=== PATIENT | female | born 1985 | race African-American/Black ===

== ENCOUNTER 2018-07-15 19:02 | Emergency (ER) | payer SELFPAY ==
[~2018-07-15] VITALS: Ht 170.2 cm; Wt 96.2 kg
--- NOTE | 2018-07-15 19:41 | PHYS DOC ---
Past History Past Medical History: Asthma Past Surgical History: No Surgical History Alcohol Use: Rarely Drug Use: None Adult General Chief Complaint Chief Complaint: SORE THROAT HPI HPI 2-year-old female presents with 2 day history of sore throat. Patient stated his become increasingly more painful to swallow. She states it feels like strep throat which she has had in the past. Her last episode was last winter. Patient denies fever or chills. She has had a mild intermittent cough. She denies any other complaints. Review of Systems Review of Systems Constitutional: Denies fever or chills [] Eyes: Denies change in visual acuity, redness, or eye pain [] HENT: Sore throat [] Respiratory: Denies cough or shortness of breath [] Cardiovascular: No additional information not addressed in HPI [] GI: Denies abdominal pain, nausea, vomiting, bloody stools or diarrhea [] : Denies dysuria or hematuria [] Musculoskeletal: Denies back pain or joint pain [] Integument: Denies rash or skin lesions [] Neurologic: Denies headache, focal weakness or sensory changes [] Endocrine: Denies polyuria or polydipsia [] All other systems were reviewed and found to be within normal limits, except as documented in this note. Allergies Allergies Allergies Coded Allergies Type Severity Reaction Last Updated Verified No Known Drug Allergies 07/15/18 No Physical Exam Physical Exam Constitutional: Well developed, well nourished, no acute distress, non-toxic appearance. [] HENT: Normocephalic, atraumatic, bilateral external ears normal, oropharynx erythematous with exudates on bilateral tonsils, nose normal. [] Eyes: PERRLA, EOMI, conjunctiva normal, no discharge. [] Neck: Normal range of motion, no tenderness, supple, no stridor. [] Cardiovascular:Heart rate regular rhythm, no murmur [] Lungs & Thorax: Bilateral breath sounds clear to auscultation [] Abdomen: Bowel sounds normal, soft, no tenderness, no masses, no pulsatile masses. [] Skin: Warm, dry, no erythema, no rash. [] Back: No tenderness, no CVA tenderness. [] Extremities: No tenderness, no cyanosis, no clubbing, ROM intact, no edema. [] Neurologic: Alert and oriented X 3, normal motor function, normal sensory function, no focal deficits noted. [] Psychologic: Affect normal, judgement normal, mood normal. [] Current Patient Data Vital Signs Vital Signs Date Time Temp Pulse Resp B/P (MAP) Pulse Ox O2 Delivery O2 Flow Rate FiO2 07/15/18 19:02 98.1 81 20 99 Room Air EKG EKG [] Radiology/Procedures Radiology/Procedures [] Course & Med Decision Making Course & Med Decision Making Pertinent Labs and Imaging studies reviewed. (See chart for details) Patient's rapid strep is positive. She would prefer to be treated with an injection versus pills. [] Dragon Disclaimer Dragon Disclaimer This electronic medical record was generated, in whole or in part, using a voice recognition dictation system. Departure Departure: Impression: Primary Impression: Strep pharyngitis Disposition: 01 HOME, SELF-CARE Condition: STABLE Patient Instructions: Strep Throat, [id number] SJ PEREA DO Jul 15, 2018 19:41
[2018-07-15 19:45] VITALS: BP 114/61
[2018-07-15] MEDS: PENICILLIN G BENZATHINE LA 1,200,000 UNIT/2 ML DISP.SYRIN. IM ONE (19:57)
== END 2018-07-15 20:00 | disposition home or self-care (01) ==
LOC: ER 19:02
DX: J02.0 Streptococcal pharyngitis (principal); B95.0 Streptococcus, group A, as the cause of diseases classified elsewhere; J45.909 Unspecified asthma, uncomplicated
CPT/HCPCS: 87880; 96372; 99283; J0561

== ENCOUNTER 2019-04-07 20:58 | Emergency (ER) | payer SELFPAY ==
[~2019-04-07] VITALS: Ht 170.2 cm; Wt 96.2 kg
[2019-04-07] MEDS ORDERED: IV NORMAL SALINE 1,000ML 1,000 ML IV ONE (21:30)
[2019-04-07] MEDS ORDERED: ONDANSETRON PF 4 MG/2 ML VIAL. IVP ONE ×2 (21:30→23:00)
--- NOTE | 2019-04-07 21:37 | PHYS DOC ---
Past History Past Medical History: Asthma Past Surgical History: No Surgical History Alcohol Use: Rarely Drug Use: None Adult General Chief Complaint Chief Complaint: NAUSEA/VOMITING/DIARRHEA HPI HPI 33-year-old female presents with nausea and vomiting. She has had multiple episodes today starting around 3 PM. The patient had one can of beer around 1 PM and she felt fine at that time. She started have some generalized abdominal cramping followed by vomiting. She is not on any prescription medications. She has not had a reaction like this to alcohol in the past. She has no known sick contact. She denies diarrhea. Denies fever. Her pain as a diffuse cramping that is 3 out of 10. Review of Systems Review of Systems Constitutional: Denies fever or chills [] Eyes: Denies change in visual acuity, redness, or eye pain [] HENT: Denies nasal congestion or sore throat [] Respiratory: Denies cough or shortness of breath [] Cardiovascular: No additional information not addressed in HPI [] GI: Diffuse abdominal pain, nausea, vomiting. Denies bloody stools or diarrhea [] : Denies dysuria or hematuria [] Musculoskeletal: Denies back pain or joint pain [] Integument: Denies rash or skin lesions [] Neurologic: Denies headache, focal weakness or sensory changes [] Endocrine: Denies polyuria or polydipsia [] All other systems were reviewed and found to be within normal limits, except as documented in this note. Current Medications Current Medications Current Medications Medications (Trade) Dose Ordered Sig/[place] Start Time Stop Time Status Last Admin Dose Admin Ondansetron HCl (Zofran) 4 mg 1X ONCE 04/07/19 21:30 04/07/19 21:31 DC 04/07/19 21:32 4 MG Sodium Chloride 1,000 ml @ 1,000 mls/hr 1X ONCE 04/07/19 21:30 04/07/19 22:29 04/07/19 21:32 1,000 MLS/HR Allergies Allergies Allergies Coded Allergies Type Severity Reaction Last Updated Verified No Known Drug Allergies 07/15/18 No Physical Exam Physical Exam Constitutional: Well developed, well nourished, mild acute distress, vomiting, non-toxic appearance. [] HENT: Normocephalic, atraumatic, bilateral external ears normal, oropharynx moist, no oral exudates, nose normal. [] Eyes: PERRLA, EOMI, conjunctiva normal, no discharge. [] Neck: Normal range of motion, no tenderness, supple, no stridor. [] Cardiovascular:Heart rate regular rhythm, no murmur [] Lungs & Thorax: Bilateral breath sounds clear to auscultation [] Abdomen: Bowel sounds normal, soft, diffuse tenderness, no masses, no pulsatile masses. [] Skin: Warm, dry, no erythema, no rash. [] Back: No tenderness, no CVA tenderness. [] Extremities: No tenderness, no cyanosis, no clubbing, ROM intact, no edema. [] Neurologic: Alert and oriented X 3, normal motor function, normal sensory function, no focal deficits noted. [] Psychologic: Affect normal, judgement normal, mood normal. [] Current Patient Data Lab Results Laboratory Tests Test 04/07/19 21:19 POC Urine HCG, Qualitative hcg negative (Negative) EKG EKG [] Radiology/Procedures Radiology/Procedures [] Course & Med Decision Making Course & Med Decision Making Pertinent Labs and Imaging studies reviewed. (See chart for details) The patient is actively vomiting in the emergency room. I ordered labs and urinalysis. Her urine test is negative. We will give her 4 mg of Zofran IV and a liter of normal saline. Labs are pending. The patient's labs are unremarkable. She's had no further vomiting. I will discharge her with prescription for Zofran. This is likely a viral illness. She is stable for discharge at this time. [] Dragon Disclaimer Dragon Disclaimer This electronic medical record was generated, in whole or in part, using a voice recognition dictation system. Departure Departure: Impression: Primary Impression: Viral gastritis Disposition: 01 HOME, SELF-CARE Condition: STABLE Referrals: PCP,NO (PCP) Patient Instructions: Nausea and Vomiting, [id number] Scripts Ondansetron (ONDANSETRON ODT) 4 Mg Tab.rapdis 1 TAB PO PRN Q6-8HRS PRN for VOMITING, #16 TAB Prov: SJ PEREA DO 04/07/19 SJ PEREA DO Apr 07, 2019 21:37
[2019-04-07 21:40] LABS: BASO % 1 % (0-3); EOS # 0.2 x10^3/uL (0.0-0.7); EOS % 3 % (0-3); HEMOGLOBIN 13.9 g/dL (12.0-15.5); LYMPH # 1.8 x10^3/uL (1.0-4.8); LYMPH % 25 % (24-48); MEAN CORPUSCULAR HEMOGLOBIN 31 pg (25-35); MEAN CORPUSCULAR HGB CONC 33 g/dL (31-37); MEAN CORPUSCULAR VOLUME 95 fL (79-100); MONO # 0.6 x10^3/uL (0.0-1.1); MONO % 8 % (0-9); NEUT # 4.5 x10^3uL (1.8-7.7); NEUT % 64 % (31-73); PLATELET COUNT 317 x10^3/uL (140-400); RED BLOOD COUNT 4.43 x10^6/uL (3.50-5.40); RED CELL DISTRIBUTION WIDTH 13.5 % (11.5-14.5); WHITE BLOOD COUNT 7.1 x10^3/uL (4.0-11.0)
[2019-04-07 21:46] LABS: BILIRUBIN,URINE NEG (NEG); CLARITY,URINE CLEAR; COLOR,URINE YELLOW; GLUCOSE,URINE NEG (NEG)
[2019-04-07 21:47] LABS: BACTERIA,URINE FEW /HPF (0-FEW); NITRITE,URINE NEG (NEG); RBC,URINE OCC /HPF (0-2); UROBILINOGEN,URINE 0.2 mg/dL (0.2 mg/dL); WBC,URINE RARE /HPF (0-4)
[2019-04-07 21:48] LABS: SQUAMOUS EPITHELIAL CELL,UR FEW /LPF
[2019-04-07 21:49] LABS: ALBUMIN 3.7 g/dL (3.4-5.0); ALBUMIN/GLOBULIN RATIO 0.8 (1.0-1.7); CALCIUM 8.7 mg/dL (8.5-10.1); CREATININE 0.9 mg/dL (0.6-1.0); GFR 87.8; TOTAL BILIRUBIN 0.4 mg/dL (0.2-1.0); TOTAL PROTEIN 8.1 g/dL (6.4-8.2)
[2019-04-07] MEDS ORDERED: ONDA4TAB12 PO (22:33)
[2019-04-07] MEDS ORDERED: ONDANSETRON 4MG ODT 4TABLET STARTPACK. PO ONE (22:45)
[2019-04-07 22:57] VITALS: BP 94/48
[2019-04-07] MEDS ORDERED: clonazePAM 1 MG TABLET PO PRN (23:30)
== END 2019-04-07 23:07 | disposition home or self-care (01) ==
LOC: ER 20:58
DX: A08.4 Viral intestinal infection, unspecified (principal); R11.2 Nausea with vomiting, unspecified; J45.909 Unspecified asthma, uncomplicated
CPT/HCPCS: 36415; 80053; 81001; 81025; 85025; 96361; 96374; 96376; 99284; J2405; Q0162; J7030

== ENCOUNTER 2019-06-17 21:27 | Emergency (ER) | payer SELFPAY ==
[~2019-06-17] VITALS: Ht 170.2 cm; Wt 97.1 kg
[~2019-06-17 21:27] MED LIST: ONDA4TAB12 PO
[2019-06-17] MEDS ORDERED: ACETAMINOPHEN 500 MG TABLET PO ONE (21:45)
[2019-06-17] MEDS ORDERED: ONDANSETRON ODT 4 MG TAB.RAPDIS PO ONE (21:45)
[2019-06-17 22:30] VITALS: BP 101/75
[2019-06-17 23:41] LABS: BARBITURATES NEG (NEG); BENZODIAZEPINES NEG (NEG); CANNABINOIDS POS (NEG); COCAINE POS (NEG); METHADONE NEG (NEG); OPIATES NEG (NEG); PHENCYCLIDINE NEG (NEG)
--- NOTE | 2019-06-17 23:41 | PHYS DOC ---
Past History Past Medical History: Asthma Past Surgical History: No Surgical History Alcohol Use: Rarely Drug Use: None Adult General Chief Complaint Chief Complaint: GENERALIZED BODY ACHES..." I hurt everywhere... my skin even hurts... I ve got fever and chills.. it been going on the last several days... HPI HPI Patient is a 33 year old female who presents with nausea, malaise, arthralgia, myalgia, fever, and chills. Patient did not get a flu vaccination this season. No recent travel. No history immunosuppression. No specific ill contacts. Review of Systems Review of Systems Constitutional: Complaints of fever or chills [] Eyes: Denies change in visual acuity, redness, or eye pain [] HENT: Denies nasal congestion or sore throat [] Respiratory: Denies cough or shortness of breath [] Cardiovascular: No additional information not addressed in HPI [] GI: Denies abdominal pain, nausea, vomiting, bloody stools or diarrhea [] : Denies dysuria or hematuria [] Musculoskeletal: Complaints of generalize arthralgia and myalgia. Integument: Denies rash or skin lesions [] Neurologic: Denies headache, focal weakness or sensory changes [] Endocrine: Denies polyuria or polydipsia [] All other systems were reviewed and found to be within normal limits, except as documented in this note. Family History Family History Noncontributory Current Medications Current Medications Current Medications Medications (Trade) Dose Ordered Sig/[place] Start Time Stop Time Status Last Admin Dose Admin Acetaminophen (Tylenol) 1,000 mg 1X ONCE 06/17/19 21:45 06/17/19 21:46 DC Ondansetron HCl (Zofran Odt) 8 mg 1X ONCE 06/17/19 21:45 06/17/19 21:46 DC Allergies Allergies Allergies Coded Allergies Type Severity Reaction Last Updated Verified No Known Drug Allergies 07/15/18 No Physical Exam Physical Exam Constitutional: Moderate acute distress, non-toxic appearance. [] HENT: Normocephalic, atraumatic, bilateral external ears normal, oropharynx moist, was nasal drainage and mild erythema, no oral exudates, nose: Turbinates and clear rhinorrhea Eyes: PERRLA, EOMI, conjunctiva normal, no discharge. [] Neck: Normal range of motion, no tenderness, supple, no stridor. [] Cardiovascular: Tachycardia Heart rate regular rhythm, no murmur [] Lungs & Thorax: Bilateral breath sounds equal at apexes and a few scattered wheezes on auscultation [] Abdomen: Bowel sounds normal, soft, no tenderness, no masses, no pulsatile masses. []Obese. Skin: Warm, dry, no erythema, no rash. [] Back: No tenderness, no CVA tenderness. [] Extremities: No tenderness, no cyanosis, no clubbing, ROM intact, no edema. [] Neurologic: Alert and oriented X 3, normal motor function, normal sensory function, no focal deficits noted. [] Psychologic: Affect anxious, judgement normal, mood normal. [] Current Patient Data Lab Results Laboratory Tests Test 06/17/19 23:05 06/17/19 23:12 Group A Streptococcus Rapid Negative (NEGATIVE) POC Urine HCG, Qualitative hcg negative (Negative) EKG EKG [] Radiology/Procedures Radiology/Procedures [] Course & Med Decision Making Course & Med Decision Making Pertinent Labs and Imaging studies reviewed. (See chart for details) She take Tylenol and ibuprofen as needed for pain and discomfort and fever. Patient push fluids. Patient follow-up primary care. When over this acute illness get update vaccination for influenza. Follow-up primary care. Return if any concerns. Avoid illicit drugs and smoking. Impression: 1. Viral Syndrome-influenza B 2. Polysubstance Abuse ( Drug screen + Cocaine, Marijuana) [] Dragon Disclaimer Dragon Disclaimer This electronic medical record was generated, in whole or in part, using a voice recognition dictation system. Departure Departure: Disposition: 01 HOME/RESIDENCE PRIOR TO ADM Condition: STABLE Referrals: PCP,NO (PCP) Scripts Ondansetron Hcl (ZOFRAN) 8 Mg Tablet 8 MG PO QIDPRN PRN for NAUSEA/VOMITING, #30 TAB Prov: AYAKA HICKS MD 06/17/19 [place] Disclaimer This chart was dictated in whole or in part using Voice Recognition software in a busy, high-work load, and often noisy Emergency Department environment. It may contain unintended and wholly unrecognized errors or omissions. AYAKA HICKS MD Jun 17, 2019 23:41
[2019-06-17 23:42] LABS: AMPHETAMINE/METHAMPHETAMINE NEG (NEG)
[2019-06-17 23:45] LABS: BACTERIA,URINE 0 /HPF (0-FEW); BILIRUBIN,URINE NEG (NEG); CLARITY,URINE HAZY; COLOR,URINE AMBER; GLUCOSE,URINE NEG (NEG); NITRITE,URINE NEG (NEG); SQUAMOUS EPITHELIAL CELL,UR OCC /LPF; UROBILINOGEN,URINE 0.2 mg/dL (0.2 mg/dL)
[2019-06-17] MEDS ORDERED: ONDA8TAB9 PO (23:51)
[2019-06-17 23:56] LABS: INFLUENZA A PATIENT NEGATIVE (NEGATIVE); INFLUENZA B PATIENT POSITIVE (NEGATIVE)
--- NOTE | 2019-06-18 00:51 | RAD ---
Exam: Chest 2 views INDICATION: Cough TECHNIQUE: Frontal and lateral views the chest Comparisons: None FINDINGS: The cardiomediastinal silhouette and pulmonary vessels are within normal limits. The lung and pleural spaces are clear. IMPRESSION: No acute cardiopulmonary process. Electronically signed by: Roz Maldonado MD (06/18/2019 12:48 AM) [id number]
== END 2019-06-18 01:00 | disposition home or self-care (01) ==
LOC: ER 21:27
DX: J10.1 Influenza due to other identified influenza virus with other respiratory manifestations (principal); J45.909 Unspecified asthma, uncomplicated; F14.10 Cocaine abuse, uncomplicated; F12.10 Cannabis abuse, uncomplicated
CPT/HCPCS: 36415; 71046; 80307; 81001; 81025; 87070; 87804; 87880; 99285; Q0162

== ENCOUNTER 2019-07-09 00:18 | Emergency (ER) | payer SELFPAY ==
[~2019-07-09] VITALS: Ht 170.2 cm; Wt 95.3 kg
[~2019-07-09 00:18] MED LIST changes: +ONDA8TAB9 PO
[2019-07-09 00:30] VITALS: BP 116/63
[2019-07-09] MEDS ORDERED: AMOX875T PO (00:33)
[2019-07-09] MEDS ORDERED: DEXAMETHASONE SOD PHOS 10 MG/ML VIAL IV ONE (01:00)
[2019-07-09] MEDS ORDERED: AMOXICILLIN 250 MG CAPSULE PO ONE (01:00)
[2019-07-09] MEDS ORDERED: ACETAMINOPHEN 500 MG TABLET PO ONE (01:00)
[2019-07-09] MEDS ORDERED: DEXAMETHASONE 4 MG TABLET PO ONE (01:00)
--- NOTE | 2019-07-09 05:03 | PHYS DOC ---
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 Past Surgical History: No Surgical History Alcohol Use: Occasionally Drug Use: Marijuana Adult General Chief Complaint Chief Complaint: SORE THROAT HPI HPI Patient is a [sore throat for two days feels warm unk fever not really coughing has strep throat every winter this feels the same pain moderate feels weak all over, same as when she has strep throat Review of Systems Review of Systems Constitutional: Denies fever or chills [] Eyes: Denies change in visual acuity, redness, or eye pain [] HENT: Denies nasal congestion or sore throat [] Respiratory: Denies cough or shortness of breath [] Cardiovascular: No additional information not addressed in HPI [] GI: Denies abdominal pain, nausea, vomiting, bloody stools or diarrhea [] : Denies dysuria or hematuria [] Musculoskeletal: Denies back pain or joint pain [] Integument: Denies rash or skin lesions [] Neurologic: Denies headache, focal weakness or sensory changes [] Endocrine: Denies polyuria or polydipsia [] All other systems were reviewed and found to be within normal limits, except as documented in this note. Current Medications Current Medications Current Medications Medications (Trade) Dose Ordered Sig/[place] Start Time Stop Time Status Last Admin Dose Admin Acetaminophen (Tylenol) 1,000 mg 1X ONCE 07/09/19 01:00 07/09/19 00:52 DC 07/09/19 00:45 1,000 MG Amoxicillin (Amoxil) 750 mg 1X ONCE 07/09/19 01:00 07/09/19 00:51 DC 07/09/19 00:46 750 MG Dexamethasone (Decadron) 6 mg 1X ONCE 07/09/19 01:00 07/09/19 00:52 DC 07/09/19 00:46 6 MG Dexamethasone Sodium Phosphate (Decadron) 6 mg 1X ONCE 07/09/19 01:00 07/09/19 00:41 DC Allergies Allergies Allergies Coded Allergies Type Severity Reaction Last Updated Verified No Known Drug Allergies 07/15/18 No Physical Exam Physical Exam Constitutional: Well developed, well nourished, no acute distress, non-toxic appearance. [] HENT: Normocephalic, atraumatic, b/l tonsillar erythema with exudate, uvula midline airway patent. lad noted ant neck one cm Neck: Normal range of motion, no tenderness, supple, no stridor. [] Cardiovascular:Heart rate regular rhythm, no murmur [] Lungs & Thorax: Bilateral breath sounds clear to auscultation [] Extremities: No tenderness, no cyanosis, no clubbing, ROM intact, no edema. [] Neurologic: Alert and oriented X 3, normal motor function, normal sensory function, no focal deficits noted. [] Psychologic: Affect normal, judgement normal, mood normal. [] Current Patient Data Vital Signs Vital Signs Date Time Temp Pulse Resp B/P (MAP) Pulse Ox O2 Delivery O2 Flow Rate FiO2 07/09/19 00:30 99.0 114 98 07/09/19 00:29 18 116/63 (80) Room Air Lab Results Temperature (Fahrenheit): * 99.0 degrees F (97.6-99.5) Patient Temperature * 99.0 degrees F (97.5-99.5) Temperature Source * Oral Blood Pressure Systolic * 116 mm Hg (100-140) Blood Pressure Diastolic * 63 mm Hg (60-100) Blood Pressure Mean * 80 mm Hg Blood Pressure Location * Right Arm Blood Pressure Source * Automatic Cuff Pulse Rate * 114 beats per minute (60-90) H Pulse Assessment Method * NIBP Bedside Pulse Oximetry * 98 % Treatment Prior to Arrival * No EKG EKG [] Radiology/Procedures Radiology/Procedures [] Course & Med Decision Making Course & Med Decision Making Pertinent Labs and Imaging studies reviewed. (See chart for details) []classic strep throat by hx and exam treat presumptively symptom control provided, decadron in ed. Dragon Disclaimer Dragon Disclaimer This electronic medical record was generated, in whole or in part, using a voice recognition dictation system. Departure Departure: Impression: Primary Impression: Pharyngitis Disposition: 01 HOME, SELF-CARE Condition: STABLE Patient Instructions: Sore Throat, [id number] Scripts Amoxicillin (AMOXICILLIN) 875 Mg Tablet 1 TAB PO BID for pharyngitis, #14 TAB Prov: THOR SARAVIA MD 07/09/19 THOR SARAVIA MD Jul 09, 2019 05:03
== END 2019-07-09 00:50 | disposition home or self-care (01) ==
LOC: ER 00:18
DX: J02.9 Acute pharyngitis, unspecified (principal); J45.909 Unspecified asthma, uncomplicated
CPT/HCPCS: 99284; J8540

== ENCOUNTER 2020-01-26 05:47 | Emergency (ER) | payer OTHER ==
[~2020-01-26] VITALS: Ht 170.2 cm; Wt 94.5 kg
[~2020-01-26 05:47] MED LIST changes: +AMOX875T PO
--- NOTE | 2020-01-26 05:53 | PHYS DOC ---
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 Risk Scores: Score 0 - 3: 2.5% MACE over next 6 weeks - Discharge Home Score 4 - 6: 20.3% MACE over next 6 weeks - Admit for Clinical Observation Score 7 - 10: 72.7% MACE over next 6 weeks - Early Invasive Strategies (AYAKA HICKS MD) Risk Factors: Risk Factors: DM, Current or recent (<one month) smoker, HTN, HLP, family history of CAD, obesity. Risk Scores: Score 0 - 3: 2.5% MACE over next 6 weeks - Discharge Home Score 4 - 6: 20.3% MACE over next 6 weeks - Admit for Clinical Observation Score 7 - 10: 72.7% MACE over next 6 weeks - Early Invasive Strategies (PEE CHOI DO) General Adult EDM: Chief Complaint: CHEST PAIN HPI: HPI: ".. I ve been hurting since last night.. it started here on the Rt.... about 1030.. it hurt to move this Rt. arm..and take a deep breath...I did have a little coughing before..but not my asthma cough.." Patient is a 34 year old female who presents with onset of right chest wall pain starting approximately 2230 hrs. last night. Pain is described as sharp and severe. Pain is exacerbated abated by deep breaths or cough. Pain is reproducible on palpation and movement of right arm. Patient does occasionally smoke tobacco and marijuana. Does occasionally use alcohol. Patient denies any drug use. Patient denies any past cardiac issues. Patient does have a history of asthma. No history of recent hospitalizations and does not feel this is related to her underlying asthma issues. No family history of onset of early cardiac disease. (AYAKA HICKS MD) Review of Systems: Review of Systems: Constitutional: Denies fever or chills Eyes: Denies change in visual acuity HENT: Denies nasal congestion or sore throat Respiratory: Denies cough or shortness of breath Cardiovascular: Complains of right chest wall pain GI: Denies abdominal pain, nausea, vomiting, bloody stools or diarrhea : Denies dysuria Musculoskeletal: Denies back pain or joint pain Integument: Denies rash Neurologic: Denies headache, focal weakness or sensory changes Endocrine: Denies polyuria or polydipsia Lymphatic: Denies swollen glands Psychiatric: Denies depression or anxiety (AYAKA HICKS MD) Heart Score: HEART Score for Chest Pain: HEART Score for Chest Pain Response (Comments) Value History Slighlty/Non-Suspicious 0 ECG Normal 0 Age < 45 0 Risk Factors 1 or 2 Risk Factors 1 Total 1 Risk Factors: Risk Factors: DM, Current or recent (<one month) smoker, HTN, HLP, family history of CAD, obesity. Risk Scores: Score 0 - 3: 2.5% MACE over next 6 weeks - Discharge Home Score 4 - 6: 20.3% MACE over next 6 weeks - Admit for Clinical Observation Score 7 - 10: 72.7% MACE over next 6 weeks - Early Invasive Strategies (AYAKA HICKS MD) HEART Score for Chest Pain: HEART Score for Chest Pain Response (Comments) Value History Slighlty/Non-Suspicious 0 ECG Normal 0 Age < 45 0 Risk Factors 1 or 2 Risk Factors 1 Troponin < Normal Limit 0 Total 1 Family History: Family History: Noncontributory to presentation (AYAKA HICKS MD) Current Medications: Current Meds: See nursing for home meds (AYAKA HICKS MD) Allergies: Allergies: Allergies Coded Allergies Type Severity Reaction Last Updated Verified No Known Drug Allergies 07/15/18 No (AYAKA HICKS MD) Physical Exam: PE: Constitutional: Mild distress, non-toxic appearance. [] HENT: Normocephalic, atraumatic, bilateral external ears normal, oropharynx moist, no oral exudates, nose normal. [] Eyes: PERRLA, EOMI, conjunctiva normal, no discharge. [] Neck: Normal range of motion, no tenderness, supple, no stridor. [] Cardiovascular: Bradycardia heart rate regular rhythm, no murmur [] Lungs & Thorax: Bilateral breath sounds equal at apex with few scattered wheezes on auscultation [] does have pain on palpation of right pectoral area Abdomen: Bowel sounds normal, soft, no tenderness, no masses, no pulsatile masses. Obese Skin: Warm, dry, no erythema, no rash. [] Back: No tenderness, no CVA tenderness. [] Extremities: No tenderness, no cyanosis, no clubbing, ROM intact, no edema. No cording appreciated Neurologic: Alert and oriented X 3, normal motor function, normal sensory function, no focal deficits noted. [] Psychologic: Affect anxious, judgement normal, mood normal. [] (AYAKA HICKS MD) Current Patient Data: Labs: Laboratory Tests Test 01/26/20 06:00 01/26/20 06:10 01/26/20 06:15 Urine Collection Type Unknown Urine Color Yellow Urine Clarity Clear Urine pH 5.5 Urine Specific [place] >=1.030 Urine Protein Neg Urine Glucose (UA) Neg mg/dL Urine Ketones (Stick) Trace mg/dL Urine Blood Trace Urine Nitrite Neg Urine Bilirubin Neg Urine Urobilinogen Dipstick 0.2 mg/dL Urine Leukocyte Esterase Neg Urine RBC 1-2 /HPF Urine WBC 1-4 /HPF Urine Squamous Epithelial Cells Mod /LPF Urine Bacteria Few /HPF Urine Mucus Slight /LPF Urine Opiates Screen Neg Urine Methadone Screen Neg Urine Barbiturates Neg Urine Phencyclidine Screen Neg Urine Amphetamine/Methamphetamine Neg Urine Benzodiazepines Screen Neg Urine Cocaine Screen Neg Urine Cannabinoids Screen Pos Urine Ethyl Alcohol Neg White Blood Count 6.0 x10^3/uL Red Blood Count 4.04 x10^6/uL Hemoglobin 12.8 g/dL Hematocrit 38.5 % Mean Corpuscular Volume 95 fL Mean Corpuscular Hemoglobin 32 pg Mean Corpuscular Hemoglobin Concent 33 g/dL Red Cell Distribution Width 14.0 % Platelet Count 280 x10^3/uL Neutrophils (%) (Auto) 47 % Lymphocytes (%) (Auto) 40 % Monocytes (%) (Auto) 11 % Eosinophils (%) (Auto) 2 % Basophils (%) (Auto) 0 % Neutrophils # (Auto) 2.8 x10^3uL Lymphocytes # (Auto) 2.4 x10^3/uL Monocytes # (Auto) 0.6 x10^3/uL Eosinophils # (Auto) 0.1 x10^3/uL Basophils # (Auto) 0.0 x10^3/uL Prothrombin Time 10.9 SEC Prothromb Time International Ratio 1.1 Activated Partial Thromboplast Time 28 SEC D-Dimer (Griselda) 0.86 mg/L Sodium Level 141 mmol/L Potassium Level 3.5 mmol/L Chloride Level 107 mmol/L Carbon Dioxide Level 24 mmol/L Anion Gap 10 Blood Urea Nitrogen 7 mg/dL Creatinine 1.0 mg/dL Estimated GFR (Cockcroft-Gault) 77.3 Glucose Level 96 mg/dL Calcium Level 8.5 mg/dL Magnesium Level 2.0 mg/dL Total Bilirubin 0.3 mg/dL Direct Bilirubin 0.1 mg/dL Aspartate Amino Transf (AST/SGOT) 13 U/L Alanine Aminotransferase (ALT/SGPT) 13 U/L Alkaline Phosphatase 42 U/L Creatine Kinase 265 U/L Troponin I Quantitative < 0.017 ng/mL IT-Upl-B-Type Natriuretic Peptide 48 pg/mL Total Protein 6.7 g/dL Albumin 3.3 g/dL Lipase 72 U/L Bedside Urine HCG, Qualitative hcg negative Current Medications Medications (Trade) Dose Ordered Sig/[place] Route PRN Reason Start Time Stop Time Status Last Admin Dose Admin Aspirin (Aspirin Chewable) 324 mg 1X ONCE PO 01/26/20 06:30 01/26/20 06:31 DC 01/26/20 06:17 Lactated Ringer's 1,000 ml @ 1,000 mls/hr Q1H IV 01/26/20 06:30 01/26/20 07:29 DC 01/26/20 06:18 Iohexol (Omnipaque 350 Mg/ml) 100 ml 1X ONCE IV 01/26/20 07:30 01/26/20 07:31 DC 01/26/20 07:52 Lidocaine (Lidoderm) 1 patch DAILY TD 01/26/20 09:00 01/26/20 07:44 Miscellaneous (Lidoderm Patch Removal) 1 ea QHS MC 01/26/20 21:00 Vital Signs: Vital Signs Date Time Temp Pulse Resp B/P (MAP) Pulse Ox O2 Delivery O2 Flow Rate FiO2 01/26/20 07:18 48 18 92/48 (63) 99 Room Air 01/26/20 05:47 98.1 58 16 113/78 (90) 100 Room Air (PEE CHOI DO) EKG: EKG: My interpretation EKG shows a sinus bradycardia at 53 bpm. No findings of acute STEMI of contralateral changes [] (AYAKA HICKS MD) Radiology/Procedures: Radiology/Procedures: [] (AYAKA HICKS MD) Radiology/Procedures: PROCEDURE: CHEST AP ONLY INDICATION: Reason: Chest Pain / Spl. Instructions: / History: COMPARISON: June 18, 2019 FINDINGS: Single view of chest obtained. Hypoexpanded examination with prominent cardiac silhouette. Left lung base is not well evaluated secondary to lack of lateral view and overlying cardiac silhouette obscuring. Relative haziness at the lung bases without consolidation elsewhere in the lungs IMPRESSION: * Relative haziness to the lung bases without consolidation elsewhere in the lungs. The most likely causes atelectasis or overlap of soft tissue structures but limited evaluation of the lung bases. No consolidation elsewhere in the lungs. * Mild prominence of the cardiac silhouette. Electronically signed by: Andrea Banegas MD (01/26/2020 6:49 AM) [id number] PROCEDURE: CT ANGIOGRAPHY CHEST CT ANGIOGRAPHY CHEST INDICATION: shortness of breath Comparison: None. TECHNIQUE: Following the uneventful administration of intravenous contrast, 99 cc Omnipaque 350, axial CT sections were obtained through the lungs and upper abdomen. Multiplanar reconstructions and MIP images were obtained. PQRS compliance statement: One or more of the following individualized dose reduction techniques were utilized for this examination: 1. Automated exposure control 2. Adjustment of the mA and/or kV according to patient size 3. Use of iterative reconstruction technique FINDINGS: Pulmonary arteries: No evidence of pulmonary thromboembolic disease. Lungs and Airways: No pulmonary mass or consolidation. No abnormality of the central airways. Pleura: The pleural spaces are normal. Heart and Mediastinum: Enlarged heterogeneous left lower thyroid with intrathoracic extension and deviation of trachea to the right. No axillary or supraclavicular lymphadenopathy. No mediastinal, hilar or retrocrural lymphadenopathy. The heart and pericardium are within normal limits. The great vessels of the thorax are normal. Abdomen: Limited images through the upper abdomen show no abnormality of the visualized organs. Bones and Soft Tissues: The visualized bones and chest wall soft tissues are within normal limits. IMPRESSION: 1. No evidence of pulmonary thromboembolic disease. 2. No consolidation. 3. Enlarged left lower thyroid with intrathoracic extension and deviation of the trachea. This could be further evaluated with nonemergent thyroid ultrasound. Electronically signed by: Otto Rodriguez MD (01/26/2020 8:31 AM) [id number] (PEE CHOI DO) Course & Med Decision Making: Course & Med Decision Making Pertinent Labs and Imaging studies reviewed. (See chart for details) Endorsed patient to at shift change. Impression: 1. Chest Pain- Atypical - Chest wall 2. Hx. of Asthma 3. Hx of Tobacco and Marijuana use [] (AYAKA HICKS MD) Course & Med Decision Making Detailed signout given by overnight physician, reviewed presenting story and work-up so far Patient seen and examined by myself, I concur with findings as reported from overnight physician Comprehensive ED work-up reviewed, no emergent pathology apparent, heart score of 1 Discussed likely self-limiting course of patient's presenting symptoms, likely diagnosis of costochondritis Discussed role of supportive care and NSAIDs for as needed pain with consideration for outpatient physical therapy Patient does not have a PCP, I think patient would greatly benefit from this for multiple reasons. Patient given resources regarding local PCPs who are accepting new patients Ultimately, ER course reviewed, patient symptomology improved with ER intervention. No emergent pathology found on work-up today Patient to be sent home with prescription for ibuprofen for pain control, stretches for likely diagnosis of costochondritis, instructions to establish with PCP for follow-up in upcoming 1 to 7 days Strict return precautions discussed at length with good understanding by patient, all questions and concerns addressed prior to ER departure (PEE CHOI DO) Dragon Disclaimer: [place] Disclaimer: This electronic medical record was generated, in whole or in part, using a voice recognition dictation system. (AYAKA HICKS MD) Departure Departure: Impression: Primary Impression: Musculoskeletal chest pain Additional Impression: Thyroid enlargement Disposition: 01 HOME/RESIDENCE PRIOR TO ADM Condition: STABLE Referrals: PCP,NO (PCP) Patient Instructions: Costochondritis, [id number], Musculoskeletal Pain Additional Instructions: As discussed prior to your departure, please follow-up with primary care physician You have been given resources on local primary care physicians in the area that are accepting new patients, please call and choose 1 to your liking to establish care with As recommended, please continue supportive care for your musculoskeletal right chest pain with ice, heat, and prescribed ibuprofen for your pain Also, please ensure you have an outpatient ultrasound of your thyroid performed to better evaluate incidental finding of enlarged left lower thyroid Scripts Ibuprofen (IBUPROFEN) 800 Mg Tablet 1 TAB PO TID for Pain, #60 TAB Prov: PEE CHOI DO 01/26/20 Justification of Admission: Justification of Admission: Justification of Admission Dx: Yes Angina: [place] Worsening of Sym (AYAKA HICKS MD) Justification of Admission Dx: N/A (PEE CHOI DO) Dragon Disclaimer This chart was dictated in whole or in part using Voice Recognition software in a busy, high-work load, and often noisy Emergency Department environment. It may contain unintended and wholly unrecognized errors or omissions. (AYAKA HICKS MD) Dragon Disclaimer This chart was dictated in whole or in part using Voice Recognition software in a busy, high-work load, and often noisy Emergency Department environment. It may contain unintended and wholly unrecognized errors or omissions. (AYAKA HICKS MD) AYAKA HICKS MD Jan 26, 2020 05:53 PEE CHOI DO Jan 26, 2020 07:04
--- NOTE | 2020-01-26 06:02 | EKG ---
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
[2020-01-26 06:26] LABS: BASO % 0 % (0-3); EOS # 0.1 x10^3/uL (0.0-0.7); EOS % 2 % (0-3); HEMATOCRIT 38.5 % (36.0-47.0); HEMOGLOBIN 12.8 g/dL (12.0-15.5); LYMPH # 2.4 x10^3/uL (1.0-4.8); LYMPH % 40 % (24-48); MEAN CORPUSCULAR HEMOGLOBIN 32 pg (25-35); MEAN CORPUSCULAR HGB CONC 33 g/dL (31-37); MEAN CORPUSCULAR VOLUME 95 fL (79-100); MONO # 0.6 x10^3/uL (0.0-1.1); MONO % 11 % (0-9); NEUT # 2.8 x10^3uL (1.8-7.7); NEUT % 47 % (31-73); PLATELET COUNT 280 x10^3/uL (140-400); RED BLOOD COUNT 4.04 x10^6/uL (3.50-5.40)
[2020-01-26] MEDS ORDERED: ASPIRIN CHEWABLE 81 MG TABLET. PO ONE (06:30)
[2020-01-26] MEDS ORDERED: IV RINGERS SOLUTION,LACTATED 1,000 ML IV SCH (06:30)
[2020-01-26 06:34] LABS: AMPHETAMINE/METHAMPHETAMINE NEG (NEG); BARBITURATES NEG (NEG); BENZODIAZEPINES NEG (NEG); CANNABINOIDS POS (NEG); COCAINE NEG (NEG); METHADONE NEG (NEG); OPIATES NEG (NEG); PHENCYCLIDINE NEG (NEG)
[2020-01-26 06:35] LABS: CALCIUM 8.5 mg/dL (8.5-10.1); GFR 77.3; POTASSIUM 3.5 mmol/L (3.5-5.1)
[2020-01-26 06:42] LABS: BACTERIA,URINE FEW /HPF (0-FEW); BILIRUBIN,URINE NEG (NEG); CLARITY,URINE CLEAR; COLOR,URINE YELLOW; GLUCOSE,URINE NEG (NEG); NITRITE,URINE NEG (NEG); SQUAMOUS EPITHELIAL CELL,UR MOD /LPF; UROBILINOGEN,URINE 0.2 mg/dL (0.2 mg/dL)
[2020-01-26 06:47] LABS: ALBUMIN 3.3 g/dL (3.4-5.0); DIRECT BILIRUBIN 0.1 mg/dL (0.0-0.2); TOTAL BILIRUBIN 0.3 mg/dL (0.2-1.0); TOTAL PROTEIN 6.7 g/dL (6.4-8.2)
--- NOTE | 2020-01-26 06:52 | RAD ---
INDICATION: Reason: Chest Pain / Spl. Instructions: / History: COMPARISON: June 18, 2019 FINDINGS: Single view of chest obtained. Hypoexpanded examination with prominent cardiac silhouette. Left lung base is not well evaluated secondary to lack of lateral view and overlying cardiac silhouette obscuring. Relative haziness at the lung bases without consolidation elsewhere in the lungs IMPRESSION: * Relative haziness to the lung bases without consolidation elsewhere in the lungs. The most likely causes atelectasis or overlap of soft tissue structures but limited evaluation of the lung bases. No consolidation elsewhere in the lungs. * Mild prominence of the cardiac silhouette. Electronically signed by: Andrea Banegas MD (01/26/2020 6:49 AM) [id number]
[2020-01-26] MEDS ORDERED: IOHEXOL 350 MG/ML 100 ML VIAL. IV ONE (07:30)
--- NOTE | 2020-01-26 08:34 | RAD ---
CT ANGIOGRAPHY CHEST INDICATION: shortness of breath Comparison: None. TECHNIQUE: Following the uneventful administration of intravenous contrast, 99 cc Omnipaque 350, axial CT sections were obtained through the lungs and upper abdomen. Multiplanar reconstructions and MIP images were obtained. PQRS compliance statement: One or more of the following individualized dose reduction techniques were utilized for this examination: 1. Automated exposure control 2. Adjustment of the mA and/or kV according to patient size 3. Use of iterative reconstruction technique FINDINGS: Pulmonary arteries: No evidence of pulmonary thromboembolic disease. Lungs and Airways: No pulmonary mass or consolidation. No abnormality of the central airways. Pleura: The pleural spaces are normal. Heart and Mediastinum: Enlarged heterogeneous left lower thyroid with intrathoracic extension and deviation of trachea to the right. No axillary or supraclavicular lymphadenopathy. No mediastinal, hilar or retrocrural lymphadenopathy. The heart and pericardium are within normal limits. The great vessels of the thorax are normal. Abdomen: Limited images through the upper abdomen show no abnormality of the visualized organs. Bones and Soft Tissues: The visualized bones and chest wall soft tissues are within normal limits. IMPRESSION: 1. No evidence of pulmonary thromboembolic disease. 2. No consolidation. 3. Enlarged left lower thyroid with intrathoracic extension and deviation of the trachea. This could be further evaluated with nonemergent thyroid ultrasound. Electronically signed by: Otto Rodriguez MD (01/26/2020 8:31 AM) [id number]
[2020-01-26] MEDS ORDERED: IBUP800T19 PO (08:43)
[2020-01-26] MEDS ORDERED: LIDOCAINE (700MG/PATCH) PATCH. TD SCH (09:00)
[2020-01-26 09:15] VITALS: BP 102/52
[2020-01-26 13:56] LABS: THYROID STIM HORMONE (TSH) 1.565 uIU/mL (0.358-3.740)
[2020-01-26] MEDS ORDERED: PATCH REMOVAL. MC SCH (21:00)
== END 2020-01-26 09:12 | disposition home or self-care (01) ==
LOC: ER 05:47
DX: R07.89 Other chest pain (principal); E04.9 Nontoxic goiter, unspecified; J45.909 Unspecified asthma, uncomplicated; F12.10 Cannabis abuse, uncomplicated; Z72.0 Tobacco use
CPT/HCPCS: 36415; 71045; 71275; 80048; 80061; 80076; 80307; 81001; 81025; 82550; 83690; 83735; 83880; 84443; 84484; 85025; 85379; 85610; 85730; 93005; 96360; 96361; 99285; J7120; Q9967